=== PATIENT | male | born 1975 | race Caucasian/White ===

== ENCOUNTER 2020-07-06 14:44 | Outpatient (REF) | payer OTHER, SELFPAY | END 2020-07-06 14:45 | disposition home or self-care (01) | LOC: HO.LAB 14:44 | PROVIDERS: PCP Internal Medicine; Visit Provider Internal Medicine | DX: Z20.828 Contact with and (suspected) exposure to other viral communicable diseases (principal) | CPT/HCPCS: C9803; U0003 ==

== ENCOUNTER → 2020-08-17 14:14 | Outpatient (BNVA) | payer SELFPAY | PROVIDERS: PCP Internal Medicine; Visit Provider Physician Assistant Medical | DX: Z02.79 Encounter for issue of other medical certificate (principal) ==

== ENCOUNTER → 2022-08-15 10:37 | Outpatient (BNVA) | payer SELFPAY | PROVIDERS: PCP Internal Medicine; Visit Provider Physician Assistant Medical | DX: Z02.79 Encounter for issue of other medical certificate (principal) ==

== ENCOUNTER → 2024-08-05 11:17 | Outpatient (BNVA) | payer SELFPAY | PROVIDERS: PCP Internal Medicine; Visit Provider Physician Assistant Medical | DX: Z02.79 Encounter for issue of other medical certificate (principal) ==

== ENCOUNTER 2024-11-10 11:03 | Day surgery (SDC) | payer OTHER, SELFPAY ==
[2024-11-10 11:06] VITALS: BP 147/102; PULSE 90; RESP 16; TEMP 36.6; O2SAT 98; BMI 20.3
--- NOTE | 2024-11-10 11:21 | ED_ITS ---
HPI - General Adult General Chief complaint: Skin/Abscess/Foreign Body Stated complaint: meat stuck in throat Time Seen by Provider: 11/10/24 11:18 Source: patient and other (patient's partner) Mode of arrival: ambulatory Limitations: no limitations History of Present Illness ED Provider: Nichole Peace PA-C HPI narrative: Patient is a 49 year old male with no known past medical history who presents to the ED due to having a piece of steak lodged in his throat. He states he was at a restaurant last night at around 1800 when he mistakenly swallowed a piece of steak before chewing it properly. He states he feels it did not pass all the way and has not been able to eat or drink since. He has had to spit his saliva in a cup. States this has never happened to him before. He denies difficulty breathing or chest pain. Endorses some mild discomfort over the lower anterior neck. Onset (ago): hour(s) (since 1800 on 11/09/2024) Relieving factors: none Exacerbating factors: none Related Data Allergies Allergy/AdvReac Type Severity Reaction Status Date / Time latex Allergy Itching Verified 11/10/24 11:08 Review of Systems 2 Constitutional: Constitutional: Reports no additional constitutional complaints, Denies chills, Denies fever(s) and Denies night sweats Eyes: Eyes: Reports no additional eye complaints, Denies blurry vision, Denies change in vision, Denies diplopia, Denies eye discharge, Denies loss of vision and Denies eye pain ENT: Denies dizziness and Reports sore throat Comments: food feeling stuck Cardiovascular: Cardiovascular: Reports no additional cardiovascular complaints, Denies chest pain, Denies lightheadedness, Denies Loss of Consciousness and Denies dyspnea Respiratory: Respiratory: Reports no additional respiratory complaints and Denies dyspnea Gastrointestinal: Gastrointestinal: Reports no additional gastrointestinal complaints, Denies abdominal pain, Denies melena, Denies hematochezia, Denies change in bowel habits and Denies change in stool character Genitourinary: Genitourinary: Reports no additional male genitourinary complaints, Denies hematuria, Denies oliguria, Denies difficulty urinating, Denies dysuria, Denies urinary frequency, Denies urinary hesitancy, Denies urinary incontinence and Denies urinary urgency Musculoskeletal: Musculoskeletal: Reports no additional musculoskeletal complaints, Denies numbness and Denies tingling Neurologic: Denies dizziness, Denies loss of vision, Denies numbness and Denies tingling Psychiatric: Psychiatric: Reports no additional psychiatric complaints Endocrine: Endocrine: Reports no additional endocrine complaints Hematologic/Lymphatic: Hematologic/Lymphatic: Reports no additional hematologic/lymphatic complaints Allergic/Immunologic: Allergic/Immunologic: Reports no additional allergic/immunologic complaints PMFSH Past Medical History Attestation statement: The following information was validated with the patient. (all information validated with the patient's partner) Source: old records reviewed, nursing notes reviewed and other (patient's partner provided additional history and confirmed the history provided by the patient.) Social History Social History Advance Directives: No Advance Directives Information Provided: Yes Physical Exam ED Vital Signs: Vital Signs - 24 hr 11/10/24 11:06 11/10/24 11:27 11/10/24 11:45 Temperature 97.9 F 98.6 F Pulse Rate 90 82 71 Respiratory Rate 16 16 Blood Pressure 147/102 H 141/97 H 137/90 H Pulse Oximetry 98 98 Oxygen Delivery Method Room Air 11/10/24 12:47 11/10/24 13:15 11/10/24 13:30 Temperature 97 F 97.1 F Pulse Rate 67 75 Respiratory Rate 20 20 Blood Pressure 91/55 L 102/60 142/97 H Pulse Oximetry 99 99 Oxygen Delivery Method Room Air Room Air BMI result Body Mass Index 20.3 Const General: cooperative, no acute distress, alert and awake Nutritional Appearance: well nourished Orientation/consciousness: patient oriented x3 Limitations: no limitations [facility] Head: Yes normal to inspection and Yes atraumatic Ears: hearing grossly normal bilaterally and external ears normal General nose exam: Normal external nose present, no nasal discharge noted and no epistaxis Face and sinus: Yes normal facial exam, No abrasion and No laceration Mouth: Normal oral and palatal mucosa present, no drooling and no muffled voice Eyes General: appearance normal, both eyes and all related structures Periorbital: periorbital findings normal Eyelids: Yes eyelids normal Conjunctivae: conjunctivae normal Pupils: Equal, round and reactive pupils present EOM: EOMs intact bilaterally Neck Neck: Yes normal visual inspection, Yes full ROM, Yes no lymphadenopathy, Yes trachea midline, Yes supple and No anterior neck swelling Chest Chest palpation & inspection: normal inspection of the chest Resp Effort & Inspection: normal respiratory effort, able to speak in complete sentences, not labored, no respiratory distress and No prolonged expiratory phase Auscultation: clear to auscultation bilaterally Cardio Heart sounds: S1 normal heart sound present, S2 normal heart sound present, no gallops, no murmurs and no rubs GI Inspection: Yes normal to inspection Neuro General: patient oriented x3, moves all extremities and CN's II-XI intact bilaterally Cranial nerves: Yes Equal, round and reactive pupils present Cognition (Neuro): normal cognition Extrem General: Yes normal to inspection, Yes full ROM and Yes capillary refill normal Psych Appearance: grossly normal Mental Status: mental status grossly normal Affect: normal affect Attitude: cooperative Thought process: Normal thought process present Thought content: Normal thought content present Insight: Good insight present (Psych) Medications Administered Discontinued Medications Generic Name Dose Route Start Last Admin Trade Name Freq PRN Reason Stop Dose Admin Glucagon 1 mg 11/10/24 11:39 11/10/24 11:45 Glucagon Hcl 1 Mg Vial IVPUSH 11/10/24 11:40 1 mg ONCE ONE Administration Nitroglycerin 0.4 mg 11/10/24 11:22 11/10/24 11:45 Nitroglycerin 0.4 Mg Tab.Subl SUBLINGUAL 11/10/24 11:23 0.4 tab ONCE ONE Administration Medical Decision Making Medical Decision Making [facility] Narrative: Patient is a 49 year old male with no known past medical history who presented to the ED stating he has had a piece of steak stuck in his throat since last night. On arrival he appeared well and in no acute distress. Patient was continually spitting his saliva into a cup, unable to appropriately swallow it. Vitals were within normal limits. Given his inability to swallow fluids, food, or saliva without expulsion, esophageal blockage was suspected. Patient was given 1 mg of glucagon IV and 0.4 mg sublingual nitroglycerin dissolved in water in attempts to pass the obstruction without success. This case was discussed with Dr. Curran from GI services and it was decided patient will need endoscopic intervention to manage the block. Patient's labs were unremarkable. I explained my physical exam findings as well as all test results to the patient and the patient's partner. I answered all questions asked by the patient and the patient's partner. Patient and the patient's partner verbalized agreement and understanding with this treatment plan and endoscopy with Dr. Curran. Differential Diagnosis Differential Diagnoses: The differential diagnosis associated with the presentation includes Esophageal food impaction Admission/Observation Consideration of admission/observation: Escalation of care including admission/observation considered Patient to OR with Dr. Curran. Consult Healthcare Provider Management of the patient was discussed with: Loader Operator/Ground Leader (spoke to Dr. Curran as noted in the MDM Rationale portion of this note.) Lab Data [facility] Lab Attestation statement: I reviewed the patient's lab results. My interpretation of these results are in the MDM Rationale portion of this note. 11/10/24 12:10 11/10/24 12:10 Labs: Lab Results 11/10/24 Range/Units 12:10 WBC 6.7 (4.8-10.8) X10*3/uL RBC 4.77 (4.60-5.80) X10*6/uL Hgb 15.6 (14.0-18.0) g/dl Hct 44.5 (42.0-52.0) % MCV 93.3 (80.0-98.0) fL MCH 32.7 (27.0-33.0) pg MCHC 35.1 (31.0-36.0) g/dl RDW 12.7 (11.0-16.0) % Plt Count 240 (160-400) X10*3/uL MPV 9.3 L (9.4-12.4) fL Immature Gran % (Auto) 0.1 (0.0-0.4) % Neut % (Auto) 68.0 (45-73) % Lymph % (Auto) 22.3 (20-40) % [place] % (Auto) 7.6 (2-11) % Eos % (Auto) 1.6 (0-4) % Baso % (Auto) 0.4 (0-2) % Lymph # (Auto) 1.5 (1.2-4.9) X10*3/uL [place] # (Auto) 0.5 (0.1-1.2) X10*3/uL Eos # (Auto) 0.1 (0.0-0.4) X10*3/uL Baso # (Auto) 0.0 (0.0-0.2) X10*3/uL Abs Immat Gran (auto) 0.01 (0.00-0.03) X10*3/uL Absolute Neuts (auto) 4.5 (2.0-8.3) x10*3/uL Absolute Nucleated RBC 0.000 (0.0-0.012) X10*3/uL Nucleated RBC % (auto) 0.0 (0.0-0.2) /100WBC PT 11.4 (10.9-12.4) SEC INR 1.0 (0.9-1.1) Sodium 141 (135-145) mmol/L Potassium 3.5 (3.3-5.1) mmol/L Chloride 107 (96-108) mmol/L Carbon Dioxide 26 (22-29) mmol/L Anion Gap 12 (12-20) BUN 13 (9-16) mg/dL Creatinine 0.85 (0.5-1.4) mg/dL Estim Creat Clear Calc 93.6 Estimated GFR > 60 Random Glucose 147 H (60-115) mg/dL Calcium 9.1 (8.4-10.2) mg/dL Total Bilirubin 0.9 (0.0-1.0) mg/dL AST 25 (5-37) U/L ALT 22 (0-40) U/L Alkaline Phosphatase 77 (39-117) U/L Total Protein 7.6 (6.5-8.0) g/dL Albumin 4.3 (3.5-5.0) g/dL Blood Type A Positive Antibody Screen NEGATIVE Independent Historian Clinical information obtained from an independent historian. History obtained from or confirmed by: Other (patient's partner provided additional history and confirmed the history provided by the patient. ) Critical Care Time Critical Care Time Critical Care Time: Yes Total Critical Care Time: 48 Attestation: I spent 48 minutes of Critical Care Time with this patient. This does not include time spent on separately reported billable procedures. Discharge Plan Discharge Clinical Impression: Esophageal obstruction due to food impaction Patient Disposition: Xfer Other Interventions: Admission Worksheet (ED) Last Done: 11/10/24 13:08 Discharge Date/Time: 11/10/24 13:09
[2024-11-10 11:27] VITALS: BP 141/97; PULSE 82; RESP 16; TEMP 37; O2SAT 98
[2024-11-10 11:45] VITALS: BP 137/90; PULSE 71
[2024-11-10] MEDS: glucagon HCL 1 MG VIAL IVPUSH (11:45)
[2024-11-10] MEDS: Nitroglycerin 0.4 MG TAB.SUBL SUBLINGUAL (11:45)
[2024-11-10 12:15] LABS: MANUAL DIFF FLAG NO
[2024-11-10 12:17] LABS: Basophils Percent Auto 0.4 % (0-2); Eosinophils Absolute Auto 0.1 X10*3/uL (0.0-0.4); Eosinophils Percent Auto 1.6 % (0-4); Hematocrit 44.5 % (42.0-52.0); Hemoglobin 15.6 g/dl (14.0-18.0); Imm Gran Abs Auto 0.01 X10*3/uL (0.00-0.03); Imm Gran Pct Auto 0.1 % (0.0-0.4); Lymphocytes Absolute Auto 1.5 X10*3/uL (1.2-4.9); Lymphocytes Percent Auto 22.3 % (20-40); Mean Corpuscular HGB Conc 35.1 g/dl (31.0-36.0); Mean Corpuscular Hemoglobin 32.7 pg (27.0-33.0); Mean Corpuscular Volume 93.3 fL (80.0-98.0); Mean Platelet Volume 9.3 fL (9.4-12.4); Monocytes Absolute Auto 0.5 X10*3/uL (0.1-1.2); Monocytes Percent Auto 7.6 % (2-11); Neutrophils Absolute Auto 4.5 x10*3/uL (2.0-8.3); Platelet Count 240 X10*3/uL (160-400); Red Blood Count 4.77 X10*6/uL (4.60-5.80); Red Cell Distribution Width 12.7 % (11.0-16.0); White Blood Count 6.7 X10*3/uL (4.8-10.8)
[2024-11-10 12:21] LABS: Prothrombin Time 11.4 SEC (10.9-12.4)
[2024-11-10 12:29] LABS: Alanine Aminotransferase 22 U/L (0-40); Albumin Level 4.3 g/dL (3.5-5.0); Alkaline Phosphatase 77 U/L (39-117); Anion Gap 12 (12-20); Aspartate Amino Transferase 25 U/L (5-37); Bilirubin Total 0.9 mg/dL (0.0-1.0); Blood Urea Nitrogen 13 mg/dL (9-16); Calcium 9.1 mg/dL (8.4-10.2); Carbon Dioxide 26 mmol/L (22-29); Chloride 107 mmol/L (96-108); Creatinine Clr Calc Pharmacy 93.6; Estimated Glomerular Filt Rate > 60; Glucose Random 147 mg/dL (60-115); Potassium 3.5 mmol/L (3.3-5.1); Sodium 141 mmol/L (135-145); Total Protein 7.6 g/dL (6.5-8.0)
--- NOTE | 2024-11-10 12:43 | HO.ANESPROP2 ---
HPI - Anesthesia Eval Consult details Narrative: Esophageal food bolus PMF Family History Family history of problems with anesthesia: No Surgical History History of Problems with Anesthesia: No Social History Social History Advance Directives: No Advance Directives Information Provided: Yes Meds Allergies Allergy/AdvReac Type Severity Reaction Status Date / Time latex Allergy Itching Verified 11/10/24 11:08 Exam Height,Weight and Vital Signs: Height 5 ft 9 in Weight 62.3 kg Last Vital Signs Temp 98.6 F 11/10/24 11:27 Pulse 71 11/10/24 11:45 Resp 16 11/10/24 11:27 BP 137/90 H 11/10/24 11:45 Pulse Ox 98 11/10/24 11:27 O2 Del Method Room Air 11/10/24 11:27 Pertinent Lab Results Pertinent Lab Results: Laboratory Tests 11/10/24 12:10 WBC 6.7 RBC 4.77 Hgb 15.6 Hct 44.5 MCV 93.3 MCH 32.7 MCHC 35.1 RDW 12.7 Plt Count 240 MPV 9.3 L Immature Gran % (Auto) 0.1 Neut % (Auto) 68.0 Lymph % (Auto) 22.3 [place] % (Auto) 7.6 Eos % (Auto) 1.6 Baso % (Auto) 0.4 Lymph # (Auto) 1.5 [place] # (Auto) 0.5 Eos # (Auto) 0.1 Baso # (Auto) 0.0 Abs Immat Gran (auto) 0.01 Absolute Neuts (auto) 4.5 Absolute Nucleated RBC 0.000 Nucleated RBC % (auto) 0.0 PT 11.4 INR 1.0 Sodium 141 Potassium 3.5 Chloride 107 Carbon Dioxide 26 Anion Gap 12 BUN 13 Creatinine 0.85 Estim Creat Clear Calc 93.6 Estimated GFR > 60 Random Glucose 147 H Calcium 9.1 Total Bilirubin 0.9 AST 25 ALT 22 Alkaline Phosphatase 77 Total Protein 7.6 Albumin 4.3 Blood Type A Positive Airway Mallampati Class: II TM Dist: >3cm Neck ROM: Full Loose/Missing/Broken Teeth: No Heart: RRR Lungs: CTA Assessment and Plan Assessment Anesthesia Assessment: Anesthesia Plan Discussed and Chart Reviewed Final Anesthetic Review Family History of Problems with Anesthesia: No History of Problems with Anesthesia: No NPO: No ASA Class: I and Emergency Final Preanesthetic Review: No Changes in Pt Med Stat, Meds/Allgs Chart Reviewed, Consent Obtained/Reviewed and Anes Risks/Benef Reviewed Patient Risk: Low Procedure Risk: Low Anesthetic Plan Anesthetic Plan: TIVA Disposition: Standard PACU
[2024-11-10 12:47] VITALS: BP 91/55
--- NOTE | 2024-11-10 13:03 | PC.NURSE ---
verbal report given to ana in OR for patient tranfer to endoscopy suite for food bolus removal. PA reports that patient will be discharged from endo.
--- NOTE | 2024-11-10 13:12 | MHC.SHP ---
Pre-Procedural Eval Section A - 24 Hr Update-Section A only Date of Service: 11/10/24 The patient is an INPATIENT: No Changes since office visit: No Cold of Flu in the past 2 weeks, No New Medical Problems, No Changes in Medication and No Patient answered all questions The patient has been examined within 24 hours of the surgical procedure. The History & Physical has been completed within 30 days and I have reviewed it.: Yes Section B - Complete if H&P > 30 days Chief Complaint: meat stuck in throat Allergies: Allergies Allergy/AdvReac Type Severity Reaction Status Date / Time latex Allergy Itching Verified 11/10/24 11:08 Plan I have reviewed the history and physical and performed a pertinent physical examination on my patient. No changes have occurred unless specified. Time Spent With Patient Time: Total time managing care of this patient today ____ minutes.
--- NOTE | 2024-11-10 13:13 | PM.OP ---
Brief Operative Note Date of Service: 11/10/24 Pre-op diagnosis: fb esophagus Post-op diagnosis: same Procedure: egd Surgeon: Michael Curran MD Anesthesia: MAC Was an [employer] used for this Procedure?: No Estimated blood loss (mL): 2 Pathology: none sent Condition: stable Disposition: PACU
[2024-11-10 13:15] VITALS: BP 102/60; PULSE 67; RESP 20; TEMP 36.1; O2SAT 99
[2024-11-10 13:30] VITALS: BP 142/97; PULSE 75; RESP 20; TEMP 36.2; O2SAT 99
--- NOTE | 2024-11-10 14:09 | OP_ITS ---
DATE OF SERVICE: 11/10/2024 SURGEON: Michael Curran MD INDICATIONS: Esophageal foreign body. PREOPERATIVE DIAGNOSIS: POSTOPERATIVE DIAGNOSIS: PROCEDURE PERFORMED: Upper endoscopy with removal of foreign body and biopsy. ESTIMATED BLOOD LOSS: COMPLICATIONS: ANESTHESIA: Monitored anesthesia care. ASSISTANTS: SPECIMENS: DESCRIPTION OF PROCEDURE: A history and physical performed. The risks and benefits of the procedure were explained to the patient. Informed consent was obtained. The patient was placed in the left lateral decubitus position. The Olympus video gastroscope was introduced into the esophagus, stomach, and duodenum. Examination was performed. The scope was removed. He tolerated the procedure well and was returned to the recovery area in stable condition. FINDINGS: Esophagus: The esophagus showed a large meat impaction in the mid esophagus at about 30 cm from the incisors. This was gently pushed through into the stomach. There was associated esophagitis at the site of the impaction. No stricture was identified. No lesions were seen. Stomach: The stomach showed antral gastritis. Biopsies were obtained from the antrum to rule out H pylori. Duodenum: The bulb and 2nd portion were normal. IMPRESSION: 1. Foreign body esophagus. 2. Gastritis. RECOMMENDATION: 1. Follow up the biopsy results. 2. Soft diet x24 hours. 3. Follow up as needed. MD MEGHAN Garcia/LILIA / [id number]
--- NOTE | 2024-11-12 11:20 | CONS_ITS ---
DATE OF SERVICE: 11/10/2024 REFERRING PHYSICIAN: TERRY Ronquillo REASON FOR CONSULTATION: Esophageal obstruction. HISTORY OF PRESENT ILLNESS: The patient is a pleasant 49-year-old man who presented to the emergency room with a 12 hour history of meat impaction. He has had this happened once before, which resolved spontaneously. He does get occasional reflux. PAST MEDICAL HISTORY: Circumcision. CURRENT MEDICATIONS: Current medication list is reviewed in the chart. ALLERGIES: LATEX. FAMILY HISTORY: Noncontributory. SOCIAL HISTORY: There is a history of tobacco and marijuana use. REVIEW OF SYSTEMS: SKIN: No pruritus. HEENT: Negative. CARDIOPULMONARY: No shortness of breath or chest pain. GASTROINTESTINAL: As above. GENITOURINARY: Negative. NEUROPSYCHIATRIC: Negative. PHYSICAL EXAMINATION: GENERAL: Shows a pleasant male, spitting into emesis basin. SKIN: Anicteric. HEENT: Shows no scleral icterus. NECK: Without lymphadenopathy or thyromegaly. LUNGS: Clear. HEART: Shows regular rate and rhythm. S1, S2. No murmur. ABDOMEN: Soft without focal masses or tenderness. Bowel sounds are present. No organomegaly is noted. EXTREMITIES: Without edema. IMPRESSION: Esophageal food impaction. PLAN: Upper endoscopy. Risks and benefits of the procedure have been discussed with the patient. He understands these and agrees to proceed. MD MEGHAN Garcia/LILIA / [id number]
== END 2024-11-10 13:45 | disposition home or self-care (01) ==
LOC: HO.ED 12:14 → HO.SSS 12:37
PROVIDERS: Physician Assistant Medical; Emergency Provider Emergency Medicine; PCP Internal Medicine; Visit Provider Internal Medicine Gastroenterology
PROC: 0DJ08ZZ Inspection of Upper Intestinal Tract, Via Natural or Artificial Opening Endoscopic (ICD-10-PCS; CPT 43235; principal; 2024-11-10 12:45)
DX: T18.128A Food in esophagus causing other injury, initial encounter (principal); W44.F3XA Food entering into or through a natural orifice, initial encounter; K29.60 Other gastritis without bleeding; Y93.89 Activity, other specified; Y92.511 Restaurant or cafe as the place of occurrence of the external cause; Y99.9 Unspecified external cause status
CPT/HCPCS: 43239; 36415; 80053; 85025; 85610; 86850; 86900; 86901; 88305; 88342; 96374; 96375; 99285; J1610; J2003; J2704; J3010